=== PATIENT | male | born 1975 | race Two or more races ===

== ENCOUNTER 2017-12-20 11:25 | Emergency (ER) | payer MEDICAID ==
[~2017-12-20] VITALS: Ht 154.9 cm; Wt 81.6 kg
[2017-12-20 11:41] VITALS: Ht 154.9 cm; Wt 81.6 kg
[2017-12-20 13:01] VITALS: BP 188/113
== END 2017-12-20 13:01 | disposition home or self-care (01) ==
LOC: ED 11:25
DX: F41.9 Anxiety disorder, unspecified (principal); R51 Headache; I10 Essential (primary) hypertension

== ENCOUNTER 2018-02-20 13:23 | Emergency (ER) | payer MEDICAID ==
[~2018-02-20] VITALS: Ht 154.9 cm; Wt 79.8 kg
[2018-02-20 15:48] VITALS: BP 147/92
== END 2018-02-20 15:48 | disposition home or self-care (01) ==
LOC: ED 13:23
DX: I10 Essential (primary) hypertension (principal)
CPT/HCPCS: J3490

== ENCOUNTER 2018-12-05 15:21 | Emergency (ER) | payer MEDICAID ==
[~2018-12-05] VITALS: Ht 154.9 cm; Wt 79.8 kg
[2018-12-05 15:24] VITALS: Ht 154.9 cm; Wt 79.8 kg
[2018-12-05 18:02] LABS: BASOPHIL % 0.5 % (0-2); PLATELET COUNT 363 x10^3mcL (130-400); RED CELL DISTRIBUTION WIDTH 13.7 % (11.5-14.5)
[2018-12-05 18:13] LABS: CALCIUM 9.4 mg/dL (8.5-10.1); CARBON DIOXIDE 29.1 mmol/L (21-32); CHLORIDE SERUM 104 mmol/L (98-107); CREATININE SERUM 0.8 mg/dL (0.7-1.3); GFR1 > 60 mL/min; GLUCOSE SERUM 97 mg/dL (74-106); POTASSIUM SERUM 3.7 mmol/L (3.5-5.1); SODIUM SERUM 141 mmol/L (136-145)
[2018-12-05 18:25] LABS: ALBUMIN 3.9 g/dL (3.4-5.0); ALKALINE PHOSPHATASE 89 U/L (46-116); ALT/SGPT 38 U/L (16-63); AMYLASE 63 U/L (25-115); AST/SGOT 16 U/L (15-37); BILIRUBIN TOTAL 0.22 mg/dL (0.20-1.00); LIPASE 88 IU/L (73-393); T4(THYROXINE) 8.7 ug/dL (4.7-13.3)
[2018-12-05 18:27] LABS: TOTAL PROTEIN, SERUM 8.8 g/dL (6.4-8.2)
[2018-12-05 19:51] VITALS: BP 132/87
== END 2018-12-05 19:51 | disposition home or self-care (01) ==
LOC: ED 15:21
PROVIDERS: Emergency Medicine
DX: B34.9 Viral infection, unspecified (principal); I10 Essential (primary) hypertension
CPT/HCPCS: J1885; J2405; J7030